=== PATIENT | female | born 1965 | race Two or more races ===

== ENCOUNTER 2017-07-07 19:39 | Emergency (ER) | payer OTHER ==
[2017-07-07 19:55] VITALS: BP 131/95; PULSE 85; RESP 18; TEMP 98.6; O2SAT 92
[2017-07-07] MEDS ORDERED: DEXAMETHASONE 4 MG TAB PO ONE (20:07)
[2017-07-07] MEDS ORDERED: ALBUTEROL INH PREPACK MDI TAKEHOME ONE ×3 (20:08→20:21)
--- NOTE | 2017-07-07 20:11 | EDPHY ---
H & P Time Seen by Provider: 07/07/17 19:49 HPI/ROS: This patient complains of a feeling of tightness in her throat and feels like her throat briefly closed off after she drink water this afternoon. The symptoms are occurring in the setting of coryza for the past week associated with some intermittent nasal congestion, dry cough and feeling of chest congestion which is improving. She also reports that she had a hoarse voice without other symptoms 2 weeks ago for 2 days that resolved. She again has a slightly scratchy voice with current symptoms. She briefly felt like she could not breathe earlier today after drinking water having feeling of her "throat closing ". She was driven here by private vehicle by her for further evaluation of her symptoms. She reports having a mild sore throat currently she thinks this is from coughing however. No other exacerbating factors for her symptoms. ROS: No high fevers or chills. No fatigue. No other constitutional symptoms HEENT: No facial pain or ear pain. Pulmonary: No hemoptysis. No pleuritic pain. No wheezing or shortness of breath. Cardiovascular: No chest pain GI: No nausea vomiting 7 point ROS is otherwise negative. Past Medical/Surgical History: Obesity Hypothyroidism Immunizations up-to-date. Social History: No drug use. Smoking Status: Never smoked Physical Exam: Physical Exam Vital signs are normal except for an O2 sat of 92% on room air General: Pleasant obese female No acute distress HEENT: Nose: Clear discharge bilaterally. No sinus tenderness to percussion. Ears: External canals and tympanic membranes are clear with no erythema or abnormal findings bilaterally. Oropharynx: No erythema or exudates. Minimal hoarse voice. No drooling or stridor. Eyes: Pupils equal and react to light. Extraocular motions are intact. Neck: Supple with no meningismus. No lymphadenopathy Lungs: Minimal wheeze only with forced exhalation or cough. None with tidal volume respirations. Cardiac: Regular rate and rhythm with no murmur gallop or rub Skin: No rash or pallor. Neuro: Alert with no focal deficits noted. Initial differential diagnosis: Viral laryngitis with viral bronchitis, URI with cough and anxiety, spastic larynx Constitutional: Initial Vital Signs Temperature (C) 37.0 C 07/07/17 19:51 Heart Rate 85 07/07/17 19:51 Respiratory Rate 18 07/07/17 19:51 Blood Pressure 131/95 H 07/07/17 19:51 O2 Sat (%) 92 07/07/17 19:51 O2 Delivery Mode Room Air Allergies/Adverse Reactions: No Known Allergies Allergy (Verified 07/07/17 19:49) Home Medications: Medication Instructions Recorded Calcium Carbonate [[id number]] 500 mg PO TID 08/30/14 Levothyroxine [Synthroid 125 mcg 250 mcg PO DAILY06 08/30/14 (*)] CALCIUM ACETATE [PHOSLO] 2 tab PO AC #120 tablet 09/01/14 Calcitriol [Calcitriol (*)] 1 mcg PO BID #0 cap 09/01/14 Fluticasone Hfa 220 Mcg [Flovent 2 puffs IH DAILY #1 mdi 07/07/17 220 MCG Hfa MDI (*)] MDM/Departure - MDM Medications Given: Discontinued Medications Albuterol Sulfate (Proventil Inh Prepack) 1 mdi TAKEHOME EDNOW ONE Stop: 07/07/17 20:22 Last Admin: 07/07/17 20:31 Dose: 1 mdi Dexamethasone (Decadron) 10 mg PO EDNOW ONE Stop: 07/07/17 20:08 Last Admin: 07/07/17 20:15 Dose: 10 mg ED Course/Re-evaluation: Discussion: This patient appears clinically well with normal vital signs exception of an O2 sat of 92% that I think is attributable to her obesity with slightly obstructive pattern as well as a mild viral bronchitis. She has no clinical evidence to suggest active airway obstruction currently-no stridor no drooling. Also no significant toxicity-no fever. Findings are most consistent with mild viral illness that is likely causing some laryngeal swelling contributing to her symptoms. Counseled her regarding this Course: Decadron 10 mg p. o. Will start her on albuterol inhaler and Flovent inhaler in addition. Humidifier as well. She the patient understands the need to return emergency department should she have any significant worsening of her symptoms despite the treatment plan. - Depart Disposition: Home, Routine, Self-Care Clinical Impression: Viral laryngitis, Viral bronchitis Condition: Good Instructions: Albuterol (By breathing), Laryngitis (ED), Acute Bronchitis (ED) Additional Instructions: Diagnosis: 1. Viral pharyngitis 2. Viral bronchitis Plan: Humidifier Albuterol inhaler-2 puffs per 4 hr for cough, wheeze or shortness of breath Flovent steroid inhaler 2 puffs once daily for 7 days You also received single dose of Decadron steroid in the emergency department for swelling. Your symptoms should improve over the next 5-7 days with treatment plan. Follow up with the Ear Nose Throat specialist listed below for further evaluation of her feeling of throat closing and hoarseness if you have any ongoing symptoms despite the treatment plan. Prescriptions: Fluticasone Hfa 220 Mcg [Flovent 220 MCG Hfa MDI (*)] 2 puffs IH DAILY #1 mdi Referrals: Carla Smith MD [Primary Care Provider] - As per Instructions Leisa Chaves MD [Medical Doctor] - As per Instructions
== END 2017-07-07 20:33 | disposition home or self-care (01) ==
LOC: CED 19:39
DX: J20.8 Acute bronchitis due to other specified organisms (principal); J04.0 Acute laryngitis